=== PATIENT | male | born 1990 ===

== ENCOUNTER 2022-06-14 13:42 | Outpatient (RCR) | payer OTHER ==
[~2022-06-14 13:42] MED LIST: LIDOCAINE VISC 2% SOLN 15 ML UDC ONE
== END 2022-06-29 ==
LOC: WCC 13:42
PROVIDERS: ATTEND Family Medicine Adult Medicine
DX: T79.A22A Traumatic compartment syndrome of left lower extremity, initial encounter (principal); I82.492 Acute embolism and thrombosis of other specified deep vein of left lower extremity; I26.99 Other pulmonary embolism without acute cor pulmonale; S81.802A Unspecified open wound, left lower leg, initial encounter; R60.0 Localized edema; E66.01 Morbid (severe) obesity due to excess calories; W31.89XA Contact with other specified machinery, initial encounter